=== PATIENT | male | born 1965 | race Caucasian/White ===

== ENCOUNTER → 2016-11-01 | Outpatient (CLI) | payer OTHER ==
[~2016-11-01] MED LIST: ASPIRIN325 MG PO; COMBIVENT0.074 GM/I INH; CUBICIN 500 MG500 MG IV; GLYBURIDE5 MG PO; IRON325 M1 PO; LISINOPRIL-HCT1 EACH PO; LOVENOX SY40 MG/0.4 SQ; METFORMIN HCL1000 MG PO; NORCO 10-325 T1 EACH PO; PROBIOTIC1 EAC1 PO; VITAMIN C 500500 MG PO
== END ==
DX: M86.9 Osteomyelitis, unspecified (principal); Z88.5 Allergy status to narcotic agent
CPT/HCPCS: 96365; J0878; J7050

== ENCOUNTER → 2016-11-02 | Outpatient (CLI) | payer OTHER ==
[2016-11-02 14:41] LABS: BUN/CREATININE RATIO 12 (0-10)
== END ==
PROVIDERS: Podiatrist Foot & Ankle Surgery
DX: M86.9 Osteomyelitis, unspecified (principal)
CPT/HCPCS: 36592; 80048; 82550; 86140; 96365; J0878; J7050

== ENCOUNTER → 2016-11-03 | Outpatient (CLI) | payer OTHER | LOC: OPSV 13:00 | DX: M86.9 Osteomyelitis, unspecified (principal) | CPT/HCPCS: 96365; J0878; J7050 ==

== ENCOUNTER → 2016-11-04 | Outpatient (CLI) | payer OTHER ==
[2016-11-04 13:08] LABS: HEMOGLOBIN 13.1 gm/dl (14.0-17.5); RED BLOOD COUNT 5.36 M/UL (4.20-5.50); WHITE BLOOD COUNT 5.6 K/UL (4.5-11.0)
== END ==
LOC: OPSV2 12:08 → OPSV 14:00
PROVIDERS: Podiatrist Foot & Ankle Surgery
DX: Z01.812 Encounter for preprocedural laboratory examination (principal); M86.9 Osteomyelitis, unspecified; M21.6X2 Other acquired deformities of left foot; E11.621 Type 2 diabetes mellitus with foot ulcer; L97.529 Non-pressure chronic ulcer of other part of left foot with unspecified severity; Z79.84 Long term (current) use of oral hypoglycemic drugs
CPT/HCPCS: 83036; 85027; 96365; J0878; J7050

== ENCOUNTER → 2016-11-05 | Outpatient (CLI) | payer OTHER | LOC: OPSV 13:46 | DX: M86.9 Osteomyelitis, unspecified (principal) | CPT/HCPCS: 96365; J0878; J7050 ==

== ENCOUNTER → 2016-11-06 | Outpatient (CLI) | payer OTHER | LOC: OPSV 13:38 | DX: M86.9 Osteomyelitis, unspecified (principal); Z88.5 Allergy status to narcotic agent | CPT/HCPCS: 96365; J0878; J7050 ==

== ENCOUNTER → 2016-11-07 | Outpatient (CLI) | payer OTHER | LOC: OPSV 07:39 | DX: M86.9 Osteomyelitis, unspecified (principal); Z88.5 Allergy status to narcotic agent | CPT/HCPCS: 96365; J0878; J7050 ==

== ENCOUNTER → 2016-11-08 | Outpatient (CLI) | payer OTHER | LOC: OPSV 07:39 | DX: M86.9 Osteomyelitis, unspecified (principal); Z88.5 Allergy status to narcotic agent | CPT/HCPCS: 96365; J0878; J7050 ==

== ENCOUNTER → 2016-11-09 | Outpatient (CLI) | payer OTHER ==
[2016-11-09 14:28] LABS: BUN/CREATININE RATIO 13 (0-10)
== END ==
LOC: OPSV 13:33
PROVIDERS: Podiatrist Foot & Ankle Surgery
DX: M86.9 Osteomyelitis, unspecified (principal); Z88.5 Allergy status to narcotic agent
CPT/HCPCS: 36592; 80048; 82550; 86140; 96365; J0878; J7050

== ENCOUNTER → 2016-11-10 | Outpatient (CLI) | payer OTHER | LOC: OPSV 12:31 | DX: M86.9 Osteomyelitis, unspecified (principal) | CPT/HCPCS: 96365; J0878; J7050 ==

== ENCOUNTER → 2016-11-11 | Day surgery (SDC) | payer OTHER | END | disposition home or self-care (01) | LOC: OR 05:58 | PROVIDERS: Podiatrist Foot & Ankle Surgery | PROC: 0QBR0ZZ Excision of Left Toe Phalanx, Open Approach (ICD-10-PCS; 2016-11-11) | PROC: 0LSP0ZZ Reposition Left Lower Leg Tendon, Open Approach (ICD-10-PCS; principal; 2016-11-11 07:45) | PROC: 0HXNXZZ Transfer Left Foot Skin, External Approach (ICD-10-PCS; 2016-11-11 07:45) | PROC: 0LXW0ZZ Transfer Left Foot Tendon, Open Approach (ICD-10-PCS; 2016-11-11 07:45) | DX: M21.6X2 Other acquired deformities of left foot (principal); E11.621 Type 2 diabetes mellitus with foot ulcer; L97.429 Non-pressure chronic ulcer of left heel and midfoot with unspecified severity; L97.529 Non-pressure chronic ulcer of other part of left foot with unspecified severity; M86.9 Osteomyelitis, unspecified; M62.472 Contracture of muscle, left ankle and foot; M25.775 Osteophyte, left foot; E11.69 Type 2 diabetes mellitus with other specified complication | CPT/HCPCS: 73630; 82962; 87070; 87077; 87205; J0690; J0878; J2795; J3370; J7030; J7050; J7120 ==

== ENCOUNTER → 2016-11-12 | Outpatient (CLI) | payer OTHER | LOC: OPSV 12:45 | DX: M86.9 Osteomyelitis, unspecified (principal) | CPT/HCPCS: 96365; J0878; J7050 ==

== ENCOUNTER → 2016-11-13 | Outpatient (CLI) | payer OTHER | LOC: OPSV 11-12 14:00 | DX: M86.9 Osteomyelitis, unspecified (principal) | CPT/HCPCS: 96365; J0878; J7050 ==

== ENCOUNTER → 2016-11-14 | Outpatient (CLI) | payer OTHER | LOC: OPSV 07:24 | DX: M86.9 Osteomyelitis, unspecified (principal) | CPT/HCPCS: 96365; J0878; J7050 ==

== ENCOUNTER → 2016-11-15 | Outpatient (CLI) | payer OTHER | LOC: OPSV 07:36 | DX: M86.9 Osteomyelitis, unspecified (principal) | CPT/HCPCS: 96365; J0878; J7050 ==

== ENCOUNTER → 2016-11-16 | Outpatient (CLI) | payer OTHER ==
[2016-11-16 14:32] LABS: BUN/CREATININE RATIO 11 (0-10)
== END ==
LOC: OPSV 13:06
PROVIDERS: Podiatrist Foot & Ankle Surgery
DX: M86.9 Osteomyelitis, unspecified (principal)
CPT/HCPCS: 36592; 80048; 82550; 86140; 96365; J0878; J7050

== ENCOUNTER → 2016-11-17 | Outpatient (CLI) | payer OTHER | LOC: OPSV 12:30 | DX: M86.9 Osteomyelitis, unspecified (principal); Z88.8 Allergy status to other drugs, medicaments and biological substances | CPT/HCPCS: 96365; J0878; J7050 ==

== ENCOUNTER → 2016-11-18 | Outpatient (CLI) | payer OTHER | LOC: OPSV 12:28 | DX: M86.9 Osteomyelitis, unspecified (principal) | CPT/HCPCS: 96365; J0878; J7050 ==

== ENCOUNTER → 2016-11-19 | Outpatient (CLI) | payer OTHER | LOC: OPSV 13:43 | DX: M86.9 Osteomyelitis, unspecified (principal) | CPT/HCPCS: 96365; J0878; J7050 ==

== ENCOUNTER → 2016-11-20 | Outpatient (CLI) | payer OTHER | LOC: OPSV 11:11 | DX: M86.8X7 Other osteomyelitis, ankle and foot (principal); Z88.5 Allergy status to narcotic agent | CPT/HCPCS: 96365; J0878; J7050 ==

== ENCOUNTER → 2016-11-21 | Outpatient (CLI) | payer OTHER | LOC: OPSV 07:11 | DX: M86.9 Osteomyelitis, unspecified (principal) | CPT/HCPCS: 96365; J0878; J7050 ==

== ENCOUNTER → 2016-11-22 | Outpatient (CLI) | payer OTHER | LOC: OPSV 08:00 | DX: M86.9 Osteomyelitis, unspecified (principal) | CPT/HCPCS: 96365; J0878; J7050 ==

== ENCOUNTER → 2016-11-23 | Outpatient (CLI) | payer OTHER ==
[2016-11-23 15:08] LABS: BUN/CREATININE RATIO 11 (0-10)
== END ==
LOC: OPSV 13:46
PROVIDERS: Podiatrist Foot & Ankle Surgery
DX: M86.9 Osteomyelitis, unspecified (principal); Z88.8 Allergy status to other drugs, medicaments and biological substances
CPT/HCPCS: 36592; 80048; 82550; 86140; 96365; J0878; J7050

== ENCOUNTER → 2016-11-24 | Outpatient (CLI) | payer OTHER | LOC: OPSV 13:32 | DX: M86.9 Osteomyelitis, unspecified (principal) | CPT/HCPCS: 96365; J0878; J7050 ==

== ENCOUNTER → 2016-11-25 | Outpatient (CLI) | payer OTHER | LOC: OPSV 13:03 | DX: M86.9 Osteomyelitis, unspecified (principal) | CPT/HCPCS: 96365; J0878; J7050 ==

== ENCOUNTER → 2016-11-26 | Outpatient (CLI) | payer OTHER | LOC: OPSV 13:33 | DX: M86.9 Osteomyelitis, unspecified (principal) | CPT/HCPCS: 96365; J0878; J7050 ==

== ENCOUNTER → 2016-11-27 | Outpatient (CLI) | payer OTHER | LOC: OPSV 13:37 | DX: M86.9 Osteomyelitis, unspecified (principal) | CPT/HCPCS: 96365; J0878; J7050 ==

== ENCOUNTER → 2016-11-28 | Outpatient (CLI) | payer OTHER | LOC: OPSV 07:08 | DX: M86.9 Osteomyelitis, unspecified (principal) | CPT/HCPCS: 96365; J0878; J7050 ==

== ENCOUNTER → 2016-11-29 | Outpatient (CLI) | payer OTHER | LOC: OPSV 07:33 | DX: Z45.2 Encounter for adjustment and management of vascular access device (principal); M86.9 Osteomyelitis, unspecified | CPT/HCPCS: 96365; J0878; J7050 ==

== ENCOUNTER → 2017-01-19 | Outpatient (CLI) | payer OTHER | LOC: LBRF 15:42 | DX: L97.329 Non-pressure chronic ulcer of left ankle with unspecified severity (principal); R89.9 Unspecified abnormal finding in specimens from other organs, systems and tissues | CPT/HCPCS: 87070; 87077; 87186; 87205 ==

== ENCOUNTER → 2021-06-16 | Day surgery (SDC) | payer OTHER ==
[~2021-06-16] MED LIST changes: +CYCLOBENZAPRINE10 MG PO; +ESCITALOPRAM OX20 MG PO; +INDERAL TAB 1010 MG PO; +NITROFURANTOIN100 MG PO; +PERCOCET 7.5-31 EACH PO; +SINGULAIR10 MG PO; +VITAMIN D21250 MCG PO
[2021-06-16 07:52] LABS: HEMOGLOBIN 8.4 gm/dl (14.0-17.5); RED BLOOD COUNT 3.2 M/UL (4.20-5.50)
[2021-06-16 08:05] LABS: BUN/CREATININE RATIO 25 (0-10)
== END | disposition home or self-care (01) ==
LOC: OR 06:01
PROVIDERS: Orthopaedic Surgery
DX: T87.89 Other complications of amputation stump (principal); J44.9 Chronic obstructive pulmonary disease, unspecified; E11.9 Type 2 diabetes mellitus without complications; I10 Essential (primary) hypertension; Z89.511 Acquired absence of right leg below knee; Z79.84 Long term (current) use of oral hypoglycemic drugs; Z79.899 Other long term (current) drug therapy; Z88.5 Allergy status to narcotic agent; Z88.8 Allergy status to other drugs, medicaments and biological substances
CPT/HCPCS: 36415; 71045; 80048; 82962; 85025; 93005; J0690; J1100; J2001; J2250; J2370; J2405; J2704; J2765; J2795; J3010; J7030; J7120

== ENCOUNTER → 2021-07-08 | Outpatient (CLI) | payer OTHER | LOC: CT 09:30 | DX: I78.0 Hereditary hemorrhagic telangiectasia (principal); D64.9 Anemia, unspecified; E86.0 Dehydration | CPT/HCPCS: 71275; Q9967 ==

== ENCOUNTER → 2021-07-08 | Outpatient (CLI) | payer OTHER | LOC: OPSV 09:58 | DX: I78.0 Hereditary hemorrhagic telangiectasia (principal); D64.9 Anemia, unspecified; E86.0 Dehydration | CPT/HCPCS: 96360; 96361; J7030 ==

== ENCOUNTER 2021-07-21 16:14 | Emergency (ER) | payer OTHER ==
[2021-07-21 18:24] LABS: RED BLOOD COUNT 2.24 M/UL (4.20-5.50); WHITE BLOOD COUNT 3.6 K/UL (4.5-11.0)
[2021-07-21 18:41] LABS: HEMOGLOBIN 4.4 gm/dl (14.0-17.5)
[2021-07-21 18:56] LABS: BUN/CREATININE RATIO 20 (0-10)
[2021-07-22 02:50] LABS: HEMOGLOBIN 6.6 gm/dl (14.0-17.5)
== END 2021-07-22 06:01 | disposition home or self-care (01) ==
LOC: ER1 16:14
PROVIDERS: Emergency Medicine; Student in an Organized Health Care Education/Training Program
DX: I78.0 Hereditary hemorrhagic telangiectasia (principal); D64.9 Anemia, unspecified; E11.9 Type 2 diabetes mellitus without complications; J44.9 Chronic obstructive pulmonary disease, unspecified; Z79.84 Long term (current) use of oral hypoglycemic drugs
CPT/HCPCS: 36430; 80048; 82962; 85014; 85018; 85025; 86850; 86900; 86901; 86920; 99284; P9016

== ENCOUNTER → 2021-08-02 | Outpatient (CLI) | payer OTHER ==
[2021-08-02 12:46] LABS: RED BLOOD COUNT 2.86 M/UL (4.20-5.50); WHITE BLOOD COUNT 5.3 K/UL (4.5-11.0)
[2021-08-02 12:52] LABS: HEMOGLOBIN 6.4 gm/dl (14.0-17.5)
== END ==
LOC: LAB 12:25
PROVIDERS: Internal Medicine
DX: D50.9 Iron deficiency anemia, unspecified (principal); I78.0 Hereditary hemorrhagic telangiectasia
CPT/HCPCS: 36415; 85025

== ENCOUNTER → 2021-08-02 | Outpatient (CLI) | payer OTHER | LOC: EROP 13:06 | DX: D50.9 Iron deficiency anemia, unspecified (principal); D64.9 Anemia, unspecified; I78.0 Hereditary hemorrhagic telangiectasia | CPT/HCPCS: 36430; 86850; 86900; 86901; 86920; P9016 ==

== ENCOUNTER → 2021-08-19 | Day surgery (SDC) | payer OTHER | END | disposition home or self-care (01) | LOC: OR 00:50 | DX: D50.9 Iron deficiency anemia, unspecified (principal); Q27.33 Arteriovenous malformation of digestive system vessel; D75.89 Other specified diseases of blood and blood-forming organs; I10 Essential (primary) hypertension; E11.9 Type 2 diabetes mellitus without complications; Z72.89 Other problems related to lifestyle; Z87.891 Personal history of nicotine dependence; Z20.822 Contact with and (suspected) exposure to COVID-19 | CPT/HCPCS: 82962; J7030 ==

== ENCOUNTER → 2021-10-23 | Day surgery (SDC) | payer OTHER ==
[~2021-10-23] MED LIST changes: +IPRAT-ALBUT 0.5-3 ML INH; +LANTUS SOL100 UNIT/1 SC; +PROTONIX 40 MG40 M1 PO; +VENOFER INJ; +VITAMIN D3125 MCG PO
== END | disposition home or self-care (01) ==
LOC: OR 05:27
DX: Z45.2 Encounter for adjustment and management of vascular access device (principal); I78.0 Hereditary hemorrhagic telangiectasia; I87.8 Other specified disorders of veins; I10 Essential (primary) hypertension; J44.9 Chronic obstructive pulmonary disease, unspecified; E11.9 Type 2 diabetes mellitus without complications; D50.9 Iron deficiency anemia, unspecified; E78.5 Hyperlipidemia, unspecified; F41.9 Anxiety disorder, unspecified; F32.A Depression, unspecified; Z79.4 Long term (current) use of insulin; Z79.899 Other long term (current) drug therapy; Z87.891 Personal history of nicotine dependence; Z88.8 Allergy status to other drugs, medicaments and biological substances
CPT/HCPCS: 71045; 77001; 82962; C1769; C1788; J0690; J1100; J1642; J1885; J2001; J2250; J2405; J2704; J3010; J7030; J7040; J7120

== ENCOUNTER → 2022-03-25 | Day surgery (SDC) | payer OTHER ==
[~2022-03-25] MED LIST changes: +CYCLOBENZAPRINE5 MG PO; +LANTUS100 UNIT/1 SQ; +LISINOPRIL-HCT1 EAC1 PO; +PAIN RELIEF325 MG PO; +PROTONIX40 MG PO
== END | disposition home or self-care (01) ==
LOC: OR 07:16
DX: K31.811 Angiodysplasia of stomach and duodenum with bleeding (principal); D50.0 Iron deficiency anemia secondary to blood loss (chronic); Q27.30 Arteriovenous malformation, site unspecified; I10 Essential (primary) hypertension; J44.9 Chronic obstructive pulmonary disease, unspecified; E11.9 Type 2 diabetes mellitus without complications; E66.01 Morbid (severe) obesity due to excess calories; Z87.891 Personal history of nicotine dependence; Z68.36 Body mass index [BMI] 36.0-36.9, adult; Z79.4 Long term (current) use of insulin; Z79.899 Other long term (current) drug therapy
CPT/HCPCS: 82962; J1642; J2704; J7040

== ENCOUNTER → 2022-04-01 | Day surgery (SDC) | payer OTHER | END | disposition home or self-care (01) | LOC: OR 07:04 | DX: K31.819 Angiodysplasia of stomach and duodenum without bleeding (principal); K26.9 Duodenal ulcer, unspecified as acute or chronic, without hemorrhage or perforation; I78.0 Hereditary hemorrhagic telangiectasia; Q27.39 Arteriovenous malformation, other site; Q27.9 Congenital malformation of peripheral vascular system, unspecified | CPT/HCPCS: 82962; J1642; J2704; J3010; J7040 ==

== ENCOUNTER → 2022-04-08 | Day surgery (SDC) | payer OTHER | END | disposition home or self-care (01) | LOC: OR 07:16 | DX: K31.811 Angiodysplasia of stomach and duodenum with bleeding (principal); I78.0 Hereditary hemorrhagic telangiectasia; D50.0 Iron deficiency anemia secondary to blood loss (chronic); I10 Essential (primary) hypertension; J44.9 Chronic obstructive pulmonary disease, unspecified; E11.9 Type 2 diabetes mellitus without complications; E66.8 Other obesity; Z68.36 Body mass index [BMI] 36.0-36.9, adult; Z87.891 Personal history of nicotine dependence; Z79.4 Long term (current) use of insulin; Z79.899 Other long term (current) drug therapy | CPT/HCPCS: 82962; J1642; J2704; J7040 ==

== ENCOUNTER → 2022-04-29 | Day surgery (SDC) | payer OTHER ==
[~2022-04-29] MED LIST changes: +DESYREL 50 MG T50 MG PO
== END | disposition home or self-care (01) ==
LOC: OR 09:26
DX: D50.0 Iron deficiency anemia secondary to blood loss (chronic) (principal); Q27.39 Arteriovenous malformation, other site; I10 Essential (primary) hypertension; E11.9 Type 2 diabetes mellitus without complications; J44.9 Chronic obstructive pulmonary disease, unspecified; Z79.4 Long term (current) use of insulin; Z79.899 Other long term (current) drug therapy
CPT/HCPCS: 82962; J1642; J2704; J7040

== ENCOUNTER → 2022-05-19 | Day surgery (SDC) | payer OTHER | END | disposition home or self-care (01) | LOC: OR 08:30 | DX: Q27.39 Arteriovenous malformation, other site (principal); D50.0 Iron deficiency anemia secondary to blood loss (chronic); E11.9 Type 2 diabetes mellitus without complications; I10 Essential (primary) hypertension; J44.9 Chronic obstructive pulmonary disease, unspecified; Z79.4 Long term (current) use of insulin; Z79.899 Other long term (current) drug therapy | CPT/HCPCS: 82962; J1642; J2704; J7040 ==